=== PATIENT | female | born 1975 | race Caucasian/White ===

== ENCOUNTER 2019-01-05 13:16 | Emergency (ER) | payer OTHER ==
[~2019-01-05] VITALS: Ht 162.6 cm; Wt 80.7 kg
--- NOTE | 2019-01-05 14:20 | NUR ---
PT WAS D/C'd TO HOME AFTER DR BARRETT EVALUATION. D/C INSTRUCTIONS GIVEN TO THE PT.
[2019-01-05 14:22] VITALS: BP 132/78
== END 2019-01-05 14:23 | disposition home or self-care (01) ==
LOC: ER 13:17
DX: J18.9 Pneumonia, unspecified organism (principal)
CPT/HCPCS: 71045